=== PATIENT | male | born 2000 | race Caucasian/White ===

== ENCOUNTER 2024-04-18 11:23 | Day surgery (SDC) | payer BC ==
[2024-04-16 12:07] VITALS: BMI 27.4
[2024-04-18] MEDS ORDERED: AFRIN NASAL MIST 15 ML BOT ONE ×2 (12:07→14:30)
[2024-04-18] MEDS ORDERED: Famotidine/PF 20 mg/2ml Vial ONE (12:12)
[2024-04-18] MEDS ORDERED: Lidocaine 2% MPF 10 ML AMP (For Epidural Use) ONE (12:13)
[2024-04-18] MEDS ORDERED: PROPOFOL 20 ML ONE (14:20)
[2024-04-18] MEDS ORDERED: Lidocaine 1% PF 5 ML VIAL ONE (14:20)
[2024-04-18] MEDS ORDERED: Ondansetron PF 4 MG/2 ML Vial ONE (14:20)
[2024-04-18] MEDS ORDERED: fentaNYL 50 mcg/mL 1 mL Vial ONE ×4 (14:20→17:26)
[2024-04-18] MEDS ORDERED: Mupirocin 2% Ointment 22 GM Tube ONE (14:31)
[2024-04-18] MEDS ORDERED: Lidocaine 1% w/Epinephrine 1:200K 30 ML VIAL ONE (14:31)
[2024-04-18] MEDS ORDERED: methylPREDNISolone Acetate 40 mg/ml Vial ONE (15:23)
[2024-04-18] MEDS ORDERED: EPINEPHrine 1 MG/ML VIAL ONE ×2 (15:23→15:50)
[2024-04-18] MEDS ORDERED: Midazolam HCl 2 mg/2 ml Vial ONE (15:30)
[2024-04-18] MEDS ORDERED: Dexamethasone 20 MG/5 ML VIAL ONE (15:51)
[2024-04-18] MEDS ORDERED: Oxymetazoline HCl 0.05% ( 15 ML ) ONE (16:00)
[2024-04-18] MEDS ORDERED: Triamcinolone 40 MG/ML VIAL ONE (16:30)
[2024-04-18] MEDS ORDERED: HYDROcodone/Acetaminophen 5/325 mg Tablet ONE (17:45)
== END 2024-04-18 18:12 | disposition home or self-care (01) ==
LOC: CSHSDC 11:23
PROVIDERS: ATTEND Specialist
DX: J34.3 Hypertrophy of nasal turbinates (principal); J32.0 Chronic maxillary sinusitis; J32.1 Chronic frontal sinusitis; J32.2 Chronic ethmoidal sinusitis
CPT/HCPCS: J0171; J1010; J1100; J2250; J2405; J2704; J3010; J3301; J3490